=== PATIENT | male | born 1945 | race Caucasian/White ===

== ENCOUNTER 2016-08-29 14:11 | Outpatient (CLI) | payer MEDICARE, OTHER ==
[~2016-08-29 14:11] MED LIST: HCTZ PO; LEVO500T15 PO; LISI40TA4 PO; SIMV20TA6 PO
== END 2016-08-29 23:59 | disposition home or self-care (01) ==
LOC: LAB 14:11
PROVIDERS: ATTEND Family Medicine
DX: M47.896 Other spondylosis, lumbar region (principal); M41.86 Other forms of scoliosis, lumbar region; M12.88 Other specific arthropathies, not elsewhere classified, other specified site; M53.86 Other specified dorsopathies, lumbar region; G89.29 Other chronic pain; M25.552 Pain in left hip; I70.0 Atherosclerosis of aorta; Z90.49 Acquired absence of other specified parts of digestive tract
CPT/HCPCS: 72100-TC; 73502

== ENCOUNTER 2016-09-05 09:19 | Outpatient (CLI) | payer MEDICARE, OTHER | END 2016-09-05 23:59 | disposition home or self-care (01) | LOC: MRI 09:19 | PROVIDERS: ATTEND Family Medicine | DX: Z75.3 Unavailability and inaccessibility of health-care facilities (principal) ==

== ENCOUNTER 2018-05-08 13:27 | Inpatient (IN) | payer OTHER, MEDICARE ==
[~2018-05-08] VITALS: Ht 165.1 cm; Wt 108.9 kg
[~2018-05-08 13:27] MED LIST changes: -LEVO500T15 PO; +LEVO500T75 PO
[2018-05-08] MEDS ORDERED: HYDR25TA4 PO (13:33)
[2018-05-08] MEDS ORDERED: CARV25TA2 PO (13:33)
--- NOTE | 2018-05-08 13:42 | NUR ---
TELESTROKE CALLED. DR CHANG PAGED.
[2018-05-08] MEDS ORDERED: IOHEXOL-350 100 ML VIAL IV ONE (13:43)
[2018-05-08] MEDS ORDERED: CT SWABBABLE VALVE TRANS SET 1 EA INFUS.SET MC ONE (13:44)
[2018-05-08] MEDS ORDERED: IV NS 0.9% 250 ML IV ONE (13:44)
[2018-05-08 13:51] LABS: BASOPHILS % (AUTO) 0.3 % (0.0-2.0); EOSINOPHILS % (AUTO) 0.9 % (0.0-6.0); HEMATOCRIT 42 % (39-51); HEMOGLOBIN 14.7 g/dL (13.5-17.5); LYMPHOCYTES # (AUTO) 0.4 /CMM (0.8-4.8); LYMPHOCYTES % (AUTO) 4.4 % (20.0-44.0); MEAN CORPUSCULAR HGB CONC 35 g/dl (31.0-36.0); MEAN CORPUSCULAR VOLUME 95 fL (80-96); MONOCYTES # (AUTO) 0.5 /CMM (0.1-1.30); NEUTROPHILS # (AUTO) 7.8 /CMM (1.8-8.9); NEUTROPHILS % (AUTO) 88.4 % (43.0-81.0); PLATELET COUNT (AUTO) 150 /CMM (150-450); RED BLOOD CELL COUNT(AUTO) 4.42 MIL/uL (4.5-6.0); WHITE BLOOD COUNT (AUTO) 8.9 K/uL (4.3-11.0)
[2018-05-08 14:00] LABS: CALCIUM, SERUM 8.4 mg/dL (8.5-10.1); CARBON DIOXIDE 27 mmol/L (21-32); CHLORIDE 94 mmol/L (98-107); CREATININE 0.9 mg/dL (0.6-1.3); GLUCOSE 180 mg/dL (74-106); POTASSIUM 3.6 mmol/L (3.5-5.1); SODIUM SERUM 131 mmol/L (136-145); UREA NITROGEN, BLOOD 15 mg/dL (7-18)
[2018-05-08] MEDS ORDERED: IV NS 0.9% 1,000 ML BAG IV ONE ×2 (14:00→15:30)
[2018-05-08] MEDS ORDERED: ASPI-1152 PO (14:02)
--- NOTE | 2018-05-08 14:07 | NUR ---
RADIOLOGY AT BEDSIDE FOR CHEST XRAY.
[2018-05-08 14:15] LABS: ALANINE AMINOTRANSFERASE 21 U/L (12-78); ALBUMIN 3.5 g/dL (3.4-5.0); ALKALINE PHOSPHATASE 69 U/L (46-116); ASPARTATE AMINOTRANSFERASE 24 U/L (15-37); BILIRUBIN,DIRECT 0.4 mg/dL (0.0-0.2); BILIRUBIN,TOTAL 1.5 mg/dL (0.2-1.0); TOTAL PROTEIN, SERUM 6.6 g/dL (6.4-8.2)
--- NOTE | 2018-05-08 14:20 | NUR ---
DR VAIL AT BEDSIDE FOR EVAL.
[2018-05-08] MEDS ORDERED: IPRATROPIUM NEB FS 0.5 MG/2.5 ML AMPUL.NEB NEB ONE (14:30)
[2018-05-08] MEDS ORDERED: ALBUTEROL FS 2.5 MG/3 ML VIAL.NEB NEB ONE (14:30)
[2018-05-08] MEDS ORDERED: methylPREDNISolone SOD SUCC 125 MG/2ML VIAL IV ONE ×2 (14:30→19:00)
[2018-05-08 14:39] LABS: CHOLESTEROL 120 mg/dL (<200); HDL CHOLESTEROL 55 mg/dL (40-60); LDL 63 mg/dL (0-99); TRIGLYCERIDES 38 mg/dL (30-150)
[2018-05-08] MEDS ORDERED: methylPREDNISolone SOD SUCC 125 MG/2ML VIAL ONE (14:48)
--- NOTE | 2018-05-08 14:57 | NUR ---
HOUSE SUP CALLED FOR BED
--- NOTE | 2018-05-08 14:59 | NUR ---
RT CALLED FOR BREATHING TX
[2018-05-08] MEDS ORDERED: ALBUTEROL FS 2.5 MG/3 ML VIAL.NEB ONE (15:06)
[2018-05-08] MEDS ORDERED: IPRATROPIUM NEB FS 0.5 MG/2.5 ML AMPUL.NEB ONE (15:06)
--- NOTE | 2018-05-08 15:22 | NUR ---
DR VAIL MADE AWARE OF CURRENT ORAL TEMP.
[2018-05-08 15:23] LABS: APPEARANCE,URINE Clear (CLEAR); BILIRUBIN,URINE Negative (NEGATIVE); BLOOD, URINE Small Ery/uL (NEGATIVE); COLOR,URINE Yellow (YELLOW); KETONES,URINE Negative (NEGATIVE); LEUKOCYTE ESTERASE ,URINE Negative (NEGATIVE); NITRITE, URINE Negative (NEGATIVE); PH,URINE 5.5 (5.0-8.0); PROTEIN,URINE Negative (NEGATIVE); UGLUCOSE Negative (NEGATIVE); UROBILINOGEN,URINE 0.2 EU/dL (0.2)
[2018-05-08] MEDS ORDERED: ACETAMINOPHEN ES 500 MG TABLET ONE (15:25)
--- NOTE | 2018-05-08 15:25 | NUR ---
BED 309 GIVEN TELE. THE NURSE IS JOSEPH
--- NOTE | 2018-05-08 15:26 | NUR ---
RT PARTIAL ALBUTEROL (2.5mg) DOSE GIVEN DUE TO PT REQUEST. DR. VAIL NOTIFIED AND AWARE. Addendum: 05/08/18 at 1528 by MISHA LOPEZ RT Amended: Links added.
--- NOTE | 2018-05-08 15:29 | NUR ---
TYLENOL 1GM PO GIVEN PER ERMD VERBAL ORDER.
[2018-05-08] MEDS ORDERED: CEFTRIAXONE 1GM BAG (ER ONLY) 50 ML IV ONE ×2 (15:30→15:57)
[2018-05-08] MEDS ORDERED: ACETAMINOPHEN ES 500 MG TABLET PO ONE (15:30)
[2018-05-08 15:39] LABS: BACTERIA,URINE Few /HPF (None Seen); SQUAMOUS EPITHELIAL CELL,UR Few /HPF (None Seen); WBC,URINE 0-2 /HPF (0-3)
[2018-05-08] MEDS: AZITHROMYCIN 500 MG in IV D5W 250 ML IV ONE ×2 (16:19→16:21)
--- NOTE | 2018-05-08 16:42 | NUR ---
[facility] CALLED. DR GONZALEZ
[2018-05-08] MEDS ORDERED: IV NS 0.9% 1,000 ML IV PRN (16:52)
[2018-05-08] MEDS ORDERED: ENOXAPARIN SODIUM 40 MG/0.4 ML DISP.SYRIN SQ SCH (17:00)
[2018-05-08] MEDS ORDERED: ACETAMINOPHEN 325 MG TABLET PO PRN (17:00)
[2018-05-08] MEDS ORDERED: AZITHROMYCIN 250 MG TABLET PO ONE (17:00)
[2018-05-08] MEDS ORDERED: Z GUARD REMEDY 2 OZ OINT TP PRN (17:00)
[2018-05-08] MEDS ORDERED: ONDANSETRON HCL/PF 4 MG/2 ML VIAL IVP PRN (17:00)
--- NOTE | 2018-05-08 17:04 | NUR ---
REPORT GIVEN TO JOSEPH JONES. PT AWAITING TRANSFER TO FLOOR.
--- NOTE | 2018-05-08 17:28 | NUR ---
ADMISSION RN NOTE PT ARRIVED VIA GURNEY FROM THE ER AT THIS TIME, A/O X3, BREATHING EVEN AND UNLABORED ON RA, NO COMPLAINTS OF PAIN OR DISTRESS AT THIS TIME, IV PATENT AND INTACT, SAFETY PRECAUTIONS IN PLACE, CALL LIGHT WITHIN REACH, WILL MONITOR ACCORDINGLY
[2018-05-08] MEDS ORDERED: CEFTRIAXONE 2 G in IV D5W 100 ML IV SCH (18:00)
--- NOTE | 2018-05-08 18:41 | NUR ---
RN CLOSING NOTE PT IN BED AT LOWEST AND LOCKED POSITION WITH SIDE RAILS UP X2, A/OX4, BREATHING EVEN AND UNLABORED ON 2L VIA NC, NO COMPLAINTS OF PAIN OR DISTRESS AT THIS TIME, IV IS PATENT AND INTACT, SKIN IS DRY AND INTACT, SAFETY [PRECAUTIONS IN PLACE, CALL LIGHT WITHIN REACH, ALL NEEDS ATTENDED TO, WILL ENDORSE TO RN CLINICAL APPEALS RN FOR MANUEL.
[2018-05-08] MEDS ORDERED: methylPREDNISolone SOD SUCC 125 MG/2ML VIAL IV PRN (19:00)
[2018-05-08] MEDS ORDERED: diphenhydrAMINE HCL 50 MG/ML VIAL IV PRN (19:00)
[2018-05-08 19:14] VITALS: BP 118/65
--- NOTE | 2018-05-08 19:30 | NUR ---
RECEIVED PATIENT AWAKE IN BED. AO X 3, ABLE TO MAKE NEEDS KNOWN. NO ACUTE DISTRESS NOTED. DENIES ANY PAIN AT THIS TIME. TELE READING SR HR 88. IV SITE PATENT, INTACT; IVF INFUSING ORDERED. SAFETY REMINDERS GIVEN. ON LOW BED WITH BILATERAL UPPER SIDE RAILS UP. CALL ERICKSON WITHIN EASY REACH. WILL CONTINUE TO MONITOR.
[2018-05-08 20:00] VITALS: BP 129/66
[2018-05-08 20:02] VITALS: BP 129/66
[2018-05-08 23:49] VITALS: BP 157/80
[2018-05-09] VITALS: BP 157/80
[2018-05-09 04:00] VITALS: BP 110/55
[2018-05-09 04:20] VITALS: BP 110/55
[2018-05-09] MEDS ORDERED: GUAI120013 PO (06:21)
--- NOTE | 2018-05-09 06:30 | NUR ---
PATIENT AWAKE. RESPIRATIONS EVEN. DENIES ANY PAIN AT THIS TIME. IVF INFUSING ORDERED. NEEDS ATTENDED. SAFETY PRECAUTIONS AND COMFORT MEASURES IN PLACE. WILL GIVE REPORT TO DAY SHIFT FOR CONTINUITY OF CARE.
[2018-05-09 06:38] LABS: BASOPHILS % (AUTO) 0.1 % (0.0-2.0); HEMATOCRIT 42 % (39-51); HEMOGLOBIN 14.4 g/dL (13.5-17.5); LYMPHOCYTES # (AUTO) 0.4 /CMM (0.8-4.8); LYMPHOCYTES % (AUTO) 6.5 % (20.0-44.0); MEAN CORPUSCULAR HGB CONC 35 g/dl (31.0-36.0); MEAN CORPUSCULAR VOLUME 96 fL (80-96); MONOCYTES # (AUTO) 0.2 /CMM (0.1-1.30); MONOCYTES % (AUTO) 2.5 % (2.0-12.0); NEUTROPHILS # (AUTO) 6.2 /CMM (1.8-8.9); NEUTROPHILS % (AUTO) 90.9 % (43.0-81.0); PLATELET COUNT (AUTO) 140 /CMM (150-450); RED BLOOD CELL COUNT(AUTO) 4.31 MIL/uL (4.5-6.0); WHITE BLOOD COUNT (AUTO) 6.8 K/uL (4.3-11.0)
[2018-05-09 06:53] LABS: CHOLESTEROL 113 mg/dL (<200); HDL CHOLESTEROL 60 mg/dL (40-60); LDL 55 mg/dL (0-99); THYROID STIMULATING HORMONE 0.782 uIU/mL (0.358-3.74); TRIGLYCERIDES 39 mg/dL (30-150)
[2018-05-09] MEDS ORDERED: GABA-532 PO (06:58)
[2018-05-09 06:59] LABS: ALANINE AMINOTRANSFERASE 24 U/L (12-78); ALBUMIN 3.3 g/dL (3.4-5.0); ALKALINE PHOSPHATASE 59 U/L (46-116); ASPARTATE AMINOTRANSFERASE 28 U/L (15-37); BILIRUBIN,TOTAL 0.5 mg/dL (0.2-1.0); CALCIUM, SERUM 8.4 mg/dL (8.5-10.1); CARBON DIOXIDE 27 mmol/L (21-32); CHLORIDE 101 mmol/L (98-107); GLUCOSE 186 mg/dL (74-106); PHOSPHORUS 2.8 mg/dL (2.5-4.9); SODIUM SERUM 138 mmol/L (136-145); TOTAL PROTEIN, SERUM 6.8 g/dL (6.4-8.2); UREA NITROGEN, BLOOD 16 mg/dL (7-18)
--- NOTE | 2018-05-09 07:35 | NUR ---
INORGANIC CHEMISTRY TEACHER OPENING NOTES RECEIVED PT SITTING UP AT THE EDGE OF THE BED. A/O X3-4, AFEBRILE. RESPIRATIONS ARE EVEN AND UNLABORED, NOT IN ANY ACUTE DISTRESS NOTED. PUPILS ARE REACTIVE TO LIGHT, BILATERAL HAND MOLD TOOLER ARE STRONG AND EQUAL. DENIES ANY PAIN AT THIS TIME, NO C/O SOB, N/V. IV SITE TO RAC INTACT, NO INFILTRATION NOTED. DRESSING KEPT CLEAN AND DRY. IV FLUIDS RUNNING AT 75ML/HR, TOLERATING WELL. SAFETY MEASURES ARE IN PLACE. INSTRUCTED PT TO USE CALL LIGHT WHEN ASSISTANCE IS NEEDED, CALL LIGHT IS LEFT WITHIN REACH. WILL MONITOR THROUGHOUT SHIFT FOR CONTINUITY OF CARE.
[2018-05-09 08:00] VITALS: BP_SYST 131; BP_DIAS 67; BP_DIAS 69
[2018-05-09] MEDS: POTASSIUM CHLORIDE 20 MEQ TAB.PRT.SR PO SCH ×2 (08:35→10:05)
--- NOTE | 2018-05-09 13:00 | NUR ---
MS RN NOTES-- PT SEEN AND EXAMINED BY DR. JANES Owens/ ORDERS FOR DISCHARGE.
[2018-05-09] MEDS ORDERED: PRED20TA PO (13:13)
[2018-05-09] MEDS ORDERED: LEVO750T21 PO (13:13)
[2018-05-09] MEDS ORDERED: IPRA12.9 INH (13:13)
--- NOTE | 2018-05-09 13:54 | NUR ---
MS SALES REPRESENTATIVE AIRCRAFT NOTE PT DISCHARGE TO HOME IN STABLE CONDITION. JAREK TO PRODUCTION REPRODUCTION MANAGER. PT IS A/O X4, AFEBRILE. RESPIRATIONS ARE EVEN AND UNLABORED, NOT IN ANY ACUTE DISTRESS NOTED. PT DENIES ANY PAIN, NO C/O SOB, N/V. PUPILS ARE REACTIVE TO LIGHT, BILATERAL HAND AGRICULTURAL EQUIPMENT SALES ENGINEER ARE STRONG AND EQUAL. ABDOMEN IS SOFT AND NONDISTENDED, BOWEL SOUNDS ARE PRESENT IN ALL 4 QUADRANTS UPON AUSCULTATION. DENIES ANY BLADDER DISCOMFORT. IV ACCESS REMOVED, APPLIED PRESSURE AND TOLERATED WELL. ID BANDS REMOVED. EXPLAINED DISCHARGE PAPERWORK TO PT WITH VERBAL AND WRITTEN UNDERSTANDING. ALL BELONGINGS SENT WITH PT. NO SKIN ISSUES NOTED. SKIN IS INTACT. ACCOMPANIED PT TO PERSONAL VEHICLE WITH 1 STAFF ASSIST VIA WHEELCHAIR IN STABLE CONDITION.
[2018-05-09] MEDS ORDERED: AZITHROMYCIN 250 MG TABLET PO SCH (17:00)
== END 2018-05-09 14:00 | disposition home or self-care (01) | DRG 871 ==
LOC: ER 13:29 → TELE 16:06 → MED 05-09 08:11
PROVIDERS: ADMIT Nurse Practitioner Acute Care; ATTEND Nurse Practitioner Acute Care
DX: A41.9 Sepsis, unspecified organism (principal); J15.9 Unspecified bacterial pneumonia; I10 Essential (primary) hypertension; E78.5 Hyperlipidemia, unspecified; I25.10 Atherosclerotic heart disease of native coronary artery without angina pectoris; E87.6 Hypokalemia; Z79.82 Long term (current) use of aspirin; E83.51 Hypocalcemia; D69.6 Thrombocytopenia, unspecified; Z87.440 Personal history of urinary (tract) infections; Z90.49 Acquired absence of other specified parts of digestive tract; Z79.899 Other long term (current) drug therapy; Z87.891 Personal history of nicotine dependence; Z88.0 Allergy status to penicillin; Z98.890 Other specified postprocedural states; I34.0 Nonrheumatic mitral (valve) insufficiency; I65.21 Occlusion and stenosis of right carotid artery; R73.03 Prediabetes; K46.9 Unspecified abdominal hernia without obstruction or gangrene
CPT/HCPCS: 36415; 70450-TC; 70496-TC; 70498-TC; 71045-TC; 80048-TC; 80053-TC; 80061-TC; 80076-TC; 80305; 81000-TC; 82962-TC; 83605-TC; 83735-TC; 84100-TC; 84146; 84443-TC; 84484-TC; 85025-TC; 85730-TC; 87040-TC; 87081-TC; 87086-TC; 87400; 93307-TC; G0378; G0480; J0456; J0696; J1650; J2930; J7030; J7050; J7060; Q9967

== ENCOUNTER 2023-10-09 03:26 | Inpatient (IN) | payer MEDICARE, BC ==
[~2023-10-09] VITALS: Ht 165.1 cm; Wt 95.3 kg
[~2023-10-09 03:26] MED LIST changes: +ASPI-1420 PO; +CARV25TA2 PO; +GABA-532 PO; +GUAI120013 PO; -HCTZ PO; +HYDR25TA4 PO; +IPRA12.9 INH; -LEVO500T75 PO; +LEVO750T21 PO; +LISI40TA13 PO; -LISI40TA4 PO; +PRED20TA PO; +SIMV-46 PO; -SIMV20TA6 PO
[2023-10-09 03:57] LABS: BASOPHILS # (AUTO) 0.1 K/uL (0.0-0.2); BASOPHILS % (AUTO) 1.1 % (0.0-2.0); EOSINOPHILS # (AUTO) 0.3 K/uL (0.0-0.7); EOSINOPHILS % (AUTO) 5.4 % (0.0-6.0); HEMATOCRIT 39 % (39-51); HEMOGLOBIN 14.3 g/dL (13.5-17.5); LYMPHOCYTES # (AUTO) 2.6 K/uL (0.8-4.8); LYMPHOCYTES % (AUTO) 53.1 % (20.0-44.0); MEAN CORPUSCULAR HEMOGLOBIN 35 PG (26.0-33.0); MEAN CORPUSCULAR HGB CONC 37 g/dl (31.0-36.0); MEAN CORPUSCULAR VOLUME 97 fL (80-96); MONOCYTES # (AUTO) 0.5 K/uL (0.1-1.30); MONOCYTES % (AUTO) 11.2 % (2.0-12.0); NEUTROPHILS # (AUTO) 1.4 K/uL (1.8-8.9); NEUTROPHILS % (AUTO) 29.2 % (43.0-81.0); PLATELET COUNT (AUTO) 130 K/uL (150-450); RED BLOOD CELL COUNT(AUTO) 4.04 MIL/uL (4.5-6.0); RED CELL DISTRIBUTION WIDTH 13.2 % (11.5-15.0); WHITE BLOOD COUNT (AUTO) 4.8 K/uL (4.3-11.0)
[2023-10-09 04:15] LABS: CALCIUM, SERUM 8.4 mg/dL (8.5-10.1); CARBON DIOXIDE 28 mmol/L (21-32); CHLORIDE 96 mmol/L (98-107); CREATININE 0.7 mg/dL (0.6-1.3); GLUCOSE 121 mg/dL (74-106); POTASSIUM 3.8 mmol/L (3.5-5.1); SODIUM SERUM 132 mmol/L (136-145); UREA NITROGEN, BLOOD 11 mg/dL (7-18)
[2023-10-09 04:21] LABS: INR 1.08 (0.91-1.10); PARTIAL THROMBOPLASTIN TIME 26.4 SEC (24.3-34.3); PROTHROMBIN TIME 11.4 SECS (9.2-11.1)
[2023-10-09 05:36] LABS: APPEARANCE,URINE OTHER (CLEAR); BILIRUBIN,URINE NEGATIVE (NEGATIVE); BLOOD, URINE NEGATIVE Ery/uL (NEGATIVE); COLOR,URINE YELLOW (YELLOW); KETONES,URINE NEGATIVE (NEGATIVE); LEUKOCYTE ESTERASE ,URINE TRACE (NEGATIVE); NITRITE, URINE NEGATIVE (NEGATIVE); PH,URINE 6.5 (5.0-8.0); PROTEIN,URINE NEGATIVE (NEGATIVE); UGLUCOSE NEGATIVE (NEGATIVE); UROBILINOGEN,URINE 0.2 EU/dL (0.2)
[2023-10-09 05:39] LABS: ADD URINE CULTURE NO; BACTERIA,URINE Rare /HPF (None Seen); RBC,URINE 0-2 /HPF (0-2); SQUAMOUS EPITHELIAL CELL,UR Few /HPF (None Seen)
[2023-10-09] MEDS ORDERED: MAG HYDROX/AL HYDROX/SIMETH 30 ML UDC PO PRN (06:00)
[2023-10-09] MEDS ORDERED: ONDANSETRON HCL/PF 4 MG/2 ML VIAL IVP PRN (06:00)
[2023-10-09] MEDS ORDERED: MAGNESIUM HYDROXIDE 30 ML UDC PO PRN (06:00)
[2023-10-09] MEDS ORDERED: ACETAMINOPHEN 325 MG TABLET PO PRN (06:00)
[2023-10-09] MEDS ORDERED: Z GUARD REMEDY 4 OZ OINT TP PRN (06:00)
[2023-10-09] MEDS ORDERED: ZOLPIDEM TARTRATE 5 MG TABLET PO PRN (06:00)
[2023-10-09] MEDS ORDERED: SEMA0.25 SQ (07:29)
[2023-10-09] MEDS ORDERED: AMLO10TA4 PO (07:29)
[2023-10-09] MEDS ORDERED: SIMV10TA98 PO (07:29)
[2023-10-09 08:00] VITALS: BP 134/71; TEMP 98.4; O2SAT 97
[2023-10-09 08:30] VITALS: BP 134/71; TEMP 98.4; O2SAT 98
[2023-10-09] MEDS: PANTOPRAZOLE 40 MG TABLET.DR PO SCH (09:20)
[2023-10-09 10:52] LABS: BASOPHILS % (AUTO) 1.1 % (0.0-2.0); EOSINOPHILS # (AUTO) 0.2 K/uL (0.0-0.7); EOSINOPHILS % (AUTO) 5.1 % (0.0-6.0); HEMATOCRIT 38 % (39-51); HEMOGLOBIN 13.7 g/dL (13.5-17.5); LYMPHOCYTES # (AUTO) 1.6 K/uL (0.8-4.8); LYMPHOCYTES % (AUTO) 40.6 % (20.0-44.0); MEAN CORPUSCULAR HEMOGLOBIN 35 PG (26.0-33.0); MEAN CORPUSCULAR HGB CONC 36 g/dl (31.0-36.0); MEAN CORPUSCULAR VOLUME 97 fL (80-96); MONOCYTES # (AUTO) 0.6 K/uL (0.1-1.30); MONOCYTES % (AUTO) 14.2 % (2.0-12.0); NEUTROPHILS # (AUTO) 1.6 K/uL (1.8-8.9); PLATELET COUNT (AUTO) 125 K/uL (150-450); RED BLOOD CELL COUNT(AUTO) 3.94 MIL/uL (4.5-6.0)
[2023-10-09 11:54] LABS: ALANINE AMINOTRANSFERASE 29 U/L (12-78); ALBUMIN 2.9 g/dL (3.4-5.0); ALKALINE PHOSPHATASE 43 U/L (46-116); ASPARTATE AMINOTRANSFERASE 21 U/L (15-37); BILIRUBIN,DIRECT 0.4 mg/dL (0.0-0.2); BILIRUBIN,TOTAL 1.8 mg/dL (0.2-1.0); CALCIUM, SERUM 8.4 mg/dL (8.5-10.1); CARBON DIOXIDE 26 mmol/L (21-32); CHLORIDE 101 mmol/L (98-107); CREATININE 0.6 mg/dL (0.6-1.3); GLUCOSE 103 mg/dL (74-106); MAGNESIUM 1.8 mg/dL (1.8-2.4); PHOSPHORUS 3.4 mg/dL (2.5-4.9); POTASSIUM 3.4 mmol/L (3.5-5.1); SODIUM SERUM 135 mmol/L (136-145); TOTAL PROTEIN, SERUM 5.6 g/dL (6.4-8.2); UREA NITROGEN, BLOOD 8 mg/dL (7-18)
[2023-10-09 12:00] VITALS: BP 123/67; TEMP 98.4; O2SAT 96
[2023-10-09 16:00] VITALS: BP 142/67; TEMP 97.5; O2SAT 96
[2023-10-09] MEDS: CARVEDILOL 12.5 MG TABLET PO SCH (16:57)
[2023-10-09] MEDS: GABAPENTIN 100 MG CAPSULE PO SCH (16:57)
[2023-10-09] MEDS ORDERED: SIMVASTATIN 10 MG TABLET PO SCH (18:00)
[2023-10-09 20:00] VITALS: BP 135/70; TEMP 97.7; O2SAT 97
[2023-10-09] MEDS ORDERED: IV NS 0.9% 250 ML IV ONE (20:01)
[2023-10-09] MEDS ORDERED: IOHEXOL-350 100 ML VIAL IV ONE (20:01)
[2023-10-09] MEDS: ATORVASTATIN 40 MG TABLET PO SCH (21:11)
[2023-10-09 23:11] LABS: THYROID STIMULATING HORMONE 1.31 uIU/mL (0.358-3.74)
[2023-10-10] VITALS: BP 121/59; TEMP 98.6; O2SAT 97
[2023-10-10 04:00] VITALS: BP 104/63; TEMP 98.4; O2SAT 99
[2023-10-10 05:00] VITALS: BP 104/63; TEMP 98.4; O2SAT 99
[2023-10-10 08:00] VITALS: BP 106/56; TEMP 98.1; O2SAT 98
[2023-10-10 08:49] VITALS: BP 108/56
[2023-10-10] MEDS: ASPIRIN EC 81 MG TABLET.DR PO SCH (08:49)
[2023-10-10] MEDS: AMLODIPINE BESYLATE 10 MG TABLET PO SCH (08:49)
[2023-10-10 09:10] LABS: CALCIUM, SERUM 8.4 mg/dL (8.5-10.1); CARBON DIOXIDE 28 mmol/L (21-32); CHLORIDE 103 mmol/L (98-107); CREATININE 0.7 mg/dL (0.6-1.3); GLUCOSE 100 mg/dL (74-106); POTASSIUM 3.5 mmol/L (3.5-5.1); SODIUM SERUM 138 mmol/L (136-145); UREA NITROGEN, BLOOD 10 mg/dL (7-18)
[2023-10-10 09:16] LABS: ALANINE AMINOTRANSFERASE 25 U/L (12-78); ALBUMIN 2.8 g/dL (3.4-5.0); ALKALINE PHOSPHATASE 45 U/L (46-116); ASPARTATE AMINOTRANSFERASE 19 U/L (15-37); BILIRUBIN,TOTAL 1.4 mg/dL (0.2-1.0); TOTAL PROTEIN, SERUM 5.3 g/dL (6.4-8.2)
[2023-10-10] MEDS ORDERED: ASPI-1420 PO (11:55)
[2023-10-11 08:10] LABS: FOLIC ACID 18.5 ng/mL (>3.0)
== END 2023-10-10 14:10 | disposition home or self-care (01) | DRG 69 ==
LOC: ER 03:29 → TELE 05:56 → MED 10-10 11:28
PROVIDERS: ADMIT Nurse Practitioner Family; ATTEND Nurse Practitioner Family
DX: G45.9 Transient cerebral ischemic attack, unspecified (principal); E87.1 Hypo-osmolality and hyponatremia; N13.30 Unspecified hydronephrosis; M06.9 Rheumatoid arthritis, unspecified; R48.8 Other symbolic dysfunctions; E86.1 Hypovolemia; Z79.899 Other long term (current) drug therapy; R73.9 Hyperglycemia, unspecified; I25.10 Atherosclerotic heart disease of native coronary artery without angina pectoris; I10 Essential (primary) hypertension; Z90.49 Acquired absence of other specified parts of digestive tract; Z98.890 Other specified postprocedural states; Z88.0 Allergy status to penicillin; Z91.040 Latex allergy status; Z79.51 Long term (current) use of inhaled steroids; Z79.82 Long term (current) use of aspirin; N28.1 Cyst of kidney, acquired; Z87.891 Personal history of nicotine dependence; G43.809 Other migraine, not intractable, without status migrainosus; R43.0 Anosmia; E66.9 Obesity, unspecified; Z68.34 Body mass index [BMI] 34.0-34.9, adult; T50.2X5A Adverse effect of carbonic-anhydrase inhibitors, benzothiadiazides and other diuretics, initial encounter; Y92.9 Unspecified place or not applicable
CPT/HCPCS: 36415; 70450-TC; 70496-TC; 70498-TC; 76700-TC; 80048-TC; 80053-TC; 80061-TC; 80076-TC; 81001; 82607-TC; 82962-TC; 83735-TC; 83921; 84100-TC; 84443-TC; 84484-TC; 85025-TC; 85730-TC; 92526; 92611-TC; 93307-TC; 97110-TC; 97112-TC; 97116-TC; 97530-TC; G0378; J7050; Q9967